=== PATIENT | female | born 1945 | race Two or more races ===

== ENCOUNTER 2022-03-02 20:46 | Inpatient (IN) | payer OTHER ==
[~2022-03-02] VITALS: Ht 162.6 cm; Wt 56.0 kg
[2022-03-02 22:10] LABS: Basophils # (auto) 0 10 ^3/uL (0-0.2); Basophils % (auto) 0.5 % (0.0-2.0); Eosinophils # (auto) 0 10 ^3/uL (0-0.8); Eosinophils % (auto) 0.3 % (0.0-7.0); Hematocrit 35.6 % (36.0-46.0); Hemoglobin 11.4 g/dL (12.2-16.2); Lymphocytes # (auto) 1.1 10 ^3/uL (0.4-5.4); Lymphocytes % (auto) 17.1 % (10.0-50.0); Mean Corpuscular Hemoglobin 28.9 pg (28.0-32.0); Mean Corpuscular Hgb Conc. 32.1 g/dL (32.0-36.0); Monocytes # (auto) 0.3 10 ^3/uL (0-1.3); Monocytes % (auto) 5.4 % (0.0-12.0); Neutrophils # (auto) 4.8 10 ^3/uL (1.6-8.6); Neutrophils % (auto) 76.7 % (37.0-80.0); Red Blood Cells 3.95 10^6/uL (4.0-5.20); Red Cell Distribution Width 14.8 % (11.8-14.3); White Blood Cell 6.2 10^3/uL (4.4-10.8)
[2022-03-02] MEDS ORDERED: SODIUM CHLORIDE 0.9% 1,000 ML IV ONE (22:15)
[2022-03-02 22:27] LABS: Albumin 3.1 g/dL (3.4-5.0); Calcium 8.4 mg/dL (8.5-10.1); Potassium 3.8 mmol/L (3.5-5.1)
[2022-03-02 22:30] LABS: BUN/Creatinine Ratio 11.3
[2022-03-02 22:32] LABS: Bilirubin, Total 0.9 mg/dL (0.2-1.0); Total Protein 6.3 g/dL (6.4-8.2)
[2022-03-03] MEDS ORDERED: ONDANSETRON HCL 4 MG/2 ML VIAL IV PRN (00:45)
[2022-03-03] MEDS ORDERED: MORPHINE SULFATE INJ 2 MG/ml SYRG IV PRN (00:45)
[2022-03-03] MEDS ORDERED: ACETAMINOPHEN 325 MG TAB PO PRN (00:45)
[2022-03-03] MEDS ORDERED: NITROGLYCERIN 0.4 MG SL TAB SL PRN (00:45)
[2022-03-03] MEDS ORDERED: ALBUMIN 5% 250 ML IV ONE (00:45)
[2022-03-03 08:03] LABS: BUN/Creatinine Ratio 10.5; Calcium 7.9 mg/dL (8.5-10.1); Potassium 3.7 mmol/L (3.5-5.1)
[2022-03-03 09:24] VITALS: BP 107/53
[2022-03-03] MEDS: PANTOPRAZOLE 40 MG TAB PO SCH ×2 (09:56→10:25)
[2022-03-03] MEDS: ENOXAPARIN SOD 40 MG/0.4 ML SYRINGE SC SCH ×2 (09:56→10:26)
[2022-03-03 12:35] VITALS: BP 113/65
[2022-03-03] MEDS: SODIUM CHLORIDE 0.9% 1,000 ML IV SCH (14:15)
[2022-03-03 16:35] VITALS: BP 110/66
[2022-03-03 17:20] LABS: Free T3 2.16 pg/mL (2.3-4.2); Free T4 (Free Thyroxine) 1.15 ng/dL (0.89-1.76)
[2022-03-03 17:21] LABS: Folate (Folic Acid) 9.36 ng/mL (5.38-24)
[2022-03-03] MEDS ORDERED: HALOPERIDOL LACTATE 5 MG/ML INJ VIAL IM PRN (21:45)
[2022-03-03 22:00] VITALS: BP 121/60
[2022-03-04 05:00] VITALS: BP 120/60
[2022-03-04 05:07] LABS: RPR Non Reactive (Non Reactive)
[2022-03-04 06:47] LABS: Basophils # (auto) 0 10 ^3/uL (0-0.2); Basophils % (auto) 0.6 % (0.0-2.0); Eosinophils # (auto) 0.1 10 ^3/uL (0-0.8); Eosinophils % (auto) 1.6 % (0.0-7.0); Hematocrit 35.9 % (36.0-46.0); Hemoglobin 11.8 g/dL (12.2-16.2); Lymphocytes # (auto) 2.1 10 ^3/uL (0.4-5.4); Lymphocytes % (auto) 34.8 % (10.0-50.0); Mean Corpuscular Hgb Conc. 32.9 g/dL (32.0-36.0); Mean Corpuscular Volume 88.1 fL (80.0-100.0); Monocytes # (auto) 0.4 10 ^3/uL (0-1.3); Monocytes % (auto) 5.8 % (0.0-12.0); Neutrophils # (auto) 3.5 10 ^3/uL (1.6-8.6); Neutrophils % (auto) 57.2 % (37.0-80.0); Nucleated Red Blood Cells % 0.1 %; Red Blood Cells 4.07 10^6/uL (4.0-5.20); Red Cell Distribution Width 14.4 % (11.8-14.3); White Blood Cell 6.2 10^3/uL (4.4-10.8)
[2022-03-04] MEDS: SODIUM CHLORIDE 0.9% 1,000 ML IV SCH ×2 (06:48→16:55)
[2022-03-04 07:07] LABS: Potassium 3.4 mmol/L (3.5-5.1)
[2022-03-04 07:17] LABS: BUN/Creatinine Ratio 10.5; Calcium 8.5 mg/dL (8.5-10.1)
[2022-03-04 09:00] VITALS: BP 113/69
[2022-03-04 13:00] VITALS: BP 101/59
[2022-03-04] MEDS: LEVOTHYROXINE SODIUM 25 MCG TAB PO SCH (16:18)
[2022-03-04 17:00] VITALS: BP 141/66
[2022-03-04 22:00] VITALS: BP 114/57
[2022-03-05 05:00] VITALS: BP 115/62
[2022-03-05] MEDS: SODIUM CHLORIDE 0.9% 1,000 ML IV SCH ×2 (06:15→19:35)
[2022-03-05 06:30] LABS: Basophils # (auto) 0.1 10 ^3/uL (0-0.2); Basophils % (auto) 0.9 % (0.0-2.0); Eosinophils # (auto) 0.1 10 ^3/uL (0-0.8); Eosinophils % (auto) 1.8 % (0.0-7.0); Hematocrit 36.2 % (36.0-46.0); Hemoglobin 12.2 g/dL (12.2-16.2); Lymphocytes % (auto) 34.6 % (10.0-50.0); Mean Corpuscular Hemoglobin 29.3 pg (28.0-32.0); Mean Corpuscular Hgb Conc. 33.7 g/dL (32.0-36.0); Mean Corpuscular Volume 86.7 fL (80.0-100.0); Monocytes # (auto) 0.4 10 ^3/uL (0-1.3); Monocytes % (auto) 7.6 % (0.0-12.0); Neutrophils # (auto) 3.2 10 ^3/uL (1.6-8.6); Neutrophils % (auto) 55.1 % (37.0-80.0); Nucleated Red Blood Cells % 0.2 %; Red Blood Cells 4.18 10^6/uL (4.0-5.20); Red Cell Distribution Width 14.5 % (11.8-14.3); White Blood Cell 5.8 10^3/uL (4.4-10.8)
[2022-03-05 06:44] LABS: BUN/Creatinine Ratio 8.2; Calcium 8.6 mg/dL (8.5-10.1); Potassium 3.2 mmol/L (3.5-5.1)
[2022-03-05] MEDS: LEVOTHYROXINE SODIUM 25 MCG TAB PO SCH (06:48)
[2022-03-05 08:55] VITALS: BP 102/72
[2022-03-05] MEDS: PANTOPRAZOLE 40 MG TAB PO SCH (10:14)
[2022-03-05] MEDS: ENOXAPARIN SOD 40 MG/0.4 ML SYRINGE SC SCH ×2 (10:14→10:15)
[2022-03-05 12:55] VITALS: BP 110/73
[2022-03-05] MEDS ORDERED: LEV25T PO (13:25)
[2022-03-05] MEDS ORDERED: POTASSIUM CHL 20MEQ/100ML 100 ML IV ONE (13:30)
[2022-03-05 16:42] VITALS: BP 124/69
[2022-03-05 21:27] VITALS: BP 126/84
[2022-03-06] MEDS: LEVOTHYROXINE SODIUM 25 MCG TAB PO SCH (06:33)
[2022-03-06 08:59] VITALS: BP 124/57
[2022-03-06] MEDS: PANTOPRAZOLE 40 MG TAB PO SCH (09:24)
== END 2022-03-06 11:19 | disposition still patient (30) | DRG 312 ==
LOC: EDBD 20:46 → ER 20:49 → TELE 03-03 00:37 → TELE-CENTR 03-03 08:08
PROVIDERS: ADMIT Nurse Practitioner; ATTEND Internal Medicine
DX: R55 Syncope and collapse (principal); G93.41 Metabolic encephalopathy; Z20.822 Contact with and (suspected) exposure to COVID-19; E78.5 Hyperlipidemia, unspecified; F03.90 Unspecified dementia, unspecified severity, without behavioral disturbance, psychotic disturbance, mood disturbance, and anxiety; E03.9 Hypothyroidism, unspecified; H57.02 Anisocoria; I10 Essential (primary) hypertension; I95.9 Hypotension, unspecified; E87.6 Hypokalemia; R00.1 Bradycardia, unspecified; R94.6 Abnormal results of thyroid function studies; Z88.5 Allergy status to narcotic agent; Z88.8 Allergy status to other drugs, medicaments and biological substances; Z90.49 Acquired absence of other specified parts of digestive tract
CPT/HCPCS: 36415; 70450; 70551; 71045; 71250; 80048; 80053; 82607; 82746; 84439; 84443; 84481; 84484; 85025; 86592; 93005; 93306; 95819; 96361; 96365; 97110; 97530; G0378; J3480

== ENCOUNTER 2024-06-26 06:27 | Emergency (ER) | payer OTHER, MEDICAID ==
[~2024-06-26] VITALS: Ht 157.5 cm; Wt 45.0 kg
[~2024-06-26 06:27] MED LIST: ASPI81TA28 PO; CALC-606 PO; DONE5TAB80 PO; LEV25T PO; METO25TA36 PO; OMEP1CAP70 PO; SIMV40TA18 PO; [UNRECOGNIZED DRUG - CODE] PO; [UNRECOGNIZED DRUG - CODE] PO
--- NOTE | 2024-06-26 06:52 | ED.PDOC ---
History of Present Illness HPI Comments 79-year-old female brought in by EMS presents s/p mechanical fall at home this morning. Per EMS, family states that they heard a thud and found patient on the ground. Patient is baseline A&Ox0 and GCS 13. Patient has a small left forehead laceration sustained from the fall. Per EMS, family reported positive LOC. Patient is not on blood thinners. No other symptoms or modifying factors present at this time. Chief Complaint: Fall Injury Time Seen by MD: 06:41 Reviewed Notes: Parts Inspector Notes, Medications, Allergies Allergies: Coded Allergies: Codeine (Verified Allergy, Unknown, 03/03/22) Promethazine (Verified Allergy, Unknown, 03/03/22) Home Meds Active Scripts Metoprolol Succinate (Toprol Xl) 25 Mg Tab, 1 TAB PO DAILY, #90 TAB 1 Refill Prov:HENNA DOMINGO MD 01/23/24 Aspirin (Aspirin Ec) 81 Mg Tab, 81 MG PO DAILY, #60 TAB Prov:HENNA DOMINGO MD 01/23/24 Levothyroxine Sodium (Levothyroxine Sodium) 25 Mcg Tab, 25 MCG PO QAM, #30 TAB Prov:ABIGAIL BEARDEN MD 03/05/22 Reported Medications Ferrous Sulfate (True Ferrous Sulfate) 324 Mg Tab, 1 TAB PO DAILY 01/23/24 Donepezil Hydrochloride (DONEPEZIL HCL) 5 Mg Tab, PO 01/23/24 Calcium Carbonate-Cholecalcife (Ultra Calcium + Vitamin D 600-10 mg-Mcg) 1 Tab Tab, 1 TAB PO BID 01/23/24 Folic Acid (True Folic Acid) 1 Mg Tab, 1 TAB PO DAILY 01/23/24 Simvastatin (Simvastatin) 40 Mg Tab, PO 01/23/24 Omeprazole (Omeprazole Dr) 20 Mg Cap, PO 01/23/24 Information Source: Emergency Med Personnel Mode of Arrival: EMS Severity: Moderate Timing: Minutes Duration: Since onset Prehospital treatment: None Past Medical History PAST MEDICAL HISTORY: Dementia, Hypotension Surgical History: Denies all surgeries DIRECTOR NURSES' REGISTRY History: Denies all DIRECTOR NURSES' REGISTRY Hx Family History Family History: Reviewed,noncontributory to illness Social History Smoker: Non-Smoker Alcohol: Denies ETOH Use Drugs: Denies Drug Use Lives In: Home Constitutional: denies: chills, diaphoresis, fatigue, fever, malaise, sweats, w eakness, others EENTM: denies: blurred vision, double vision, ear bleeding, ear discharge, ear drainage, ear pain, ear ringing, eye pain, eye redness, hearing loss, mouth pain, mouth swelling, nasal discharge, nose bleeding, nose congestion, nose pain, photophobia, tearing, throat pain, throat swelling, voice changes, others Respiratory: denies: cough, hemoptysis, orthopnea, SOB at rest, shortness of breath, SOB with excertion, stridor, wheezing, others Cardiovascular: denies: chest pain, dizzy spells, diaphoresis, Dyspnea on exertion, edema, irregular heart beat, left arm pain, lightheadedness, palpitations, PND, syncope, others Gastrointestinal: denies: abdomen distended, abdominal pain, blood streaked bowels, constipated, diarrhea, dysphagia, difficulty swallowing, hematemesis, melena, nausea, poor appetite, poor fluid intake, rectal bleeding, rectal pain, vomiting, others Genitourinary: denies: abnormal vagina bleeding, burning, dyspareunia, dysuria, flank pain, frequency, hematuria, incontinence, pain, , vagina di scharge, urgency, others Neurological: denies: dizziness, fainting, headache, left sided numbness, left sided weakness, numbness, paresthesia, pre-existing deficit, right sided numbness, right sided weakness, seizure, speech problems, tingling, tremors, weakness, others Musculoskeletal: denies: back pain, gout, joint pain, joint swelling, muscle pain, muscle stiffness, neck pain, others Integumetry: reports: laceration (Left Forehead); denies: bruises, change in color, change in hair/nails, dryness, lesions, lumps, rash, wounds, others Allergic/Immunocompromised: denies: Difficulty Healing, Frequent Infections, Hives, Itching, others Hematologic/Lymphatic: denies: anemia, blood clots, easy bleeding, easy bruising, swollen glands, others Endocrine: denies: excessive hunger, excessive sweating, excessive thirst, excessive urination, flushing, intolerance to cold, intolerance to heat, unexplained weight gain, unexplained weight loss, others Psychiatric: denies: anxiety, bipolar disorder, depression, hopeless, panic disorder, schizophrenia, sleepless, suicidal, others Unable to Obtain due to: Dementia All Other Systems: Reviewed and Negative Physical Exam General Appearance: No Apparent Distress, Normal HEENT: Normal ENT Inspection, Pharynx Normal, TMs Normal Neck: Full Range of Motion, Non-Tender, Normal, Normal Inspection Respiratory: Chest Non-Tender, Lungs Clear, No Accessory Muscle Use, No Respiratory Distress, Normal Breath Sounds Cardiovascular: No Edema, No JVD, No Murmur, No Gallop, Normal Peripheral Pulses, Regular Rate/Rhythm Breast Exam: Deferred Gastrointestinal: No Organomegaly, Non Tender, No Pulsatile Mass, Normal Bowel Sounds, Soft Genitalia: Deferred Pelvic: Deferred Rectal: Deferred Extremities: No calf tenderness, Normal capillary refill, Normal inspection, Normal range of motion, Non-tender, No pedal edema Musculoskeletal : Apperance: Normal Neurologic: Alert, syrup filterer II-XII nml as Tested, No Motor Deficits, Normal Affect, Normal Mood, No Sensory Deficits Cerebellar Function: Normal Reflexes: Normal Skin: Dry, Normal Color, Warm Lymphatic: No Adenopathy Was a procedure done? Was a procedure done?: No Differential Dx Considerations may include: Traumatic injury, electrolyte abnormality, intracranial bleed X-Ray, Labs, Meds, VS Vital Signs Date Time Temp Pulse Resp B/P (MAP) Pulse Ox O2 Delivery O2 Flow Rate FiO2 06/26/24 10:24 98.2 89 18 122/68 (86) 96 98.2 06/26/24 06:32 78 06/26/24 06:27 98.2 72 18 126/69 (88) 97 Lab Test 06/26/24 10:14 Range/Units White Blood Count 13.7 H 4.4-10.8 10^3/uL Red Blood Count 4.46 4.0-5.20 10^6/uL Hemoglobin 13.0 12.2-16.2 g/dL Hematocrit 38.5 36.0-46.0 % Mean Corpuscular Volume 86.3 80.0-100.0 fL Mean Corpuscular Hemoglobin 29.1 28.0-32.0 pg Mean Corpuscular Hemoglobin Concent 33.7 32.0-36.0 g/dL Red Cell Distribution Width 15.7 H 11.8-14.3 % Platelet Count 279 140-450 10^3/uL Mean Platelet Volume 9.0 6.9-10.8 fL Neutrophils (%) (Auto) 83.4 H 37.0-80.0 % Lymphocytes (%) (Auto) 10.9 10.0-50.0 % Monocytes (%) (Auto) 5.1 0.0-12.0 % Eosinophils (%) (Auto) 0.1 0.0-7.0 % Basophils (%) (Auto) 0.5 0.0-2.0 % Neutrophils # (Auto) 11.5 H 1.6-8.6 10 ^3/uL Lymphocytes # (Auto) 1.5 0.4-5.4 10 ^3/uL Monocytes # (Auto) 0.7 0-1.3 10 ^3/uL Eosinophils # (Auto) 0 0-0.8 10 ^3/uL Basophils # (Auto) 0.1 0-0.2 10 ^3/uL Nucleated Red Blood Cells 0.1 % Prothrombin Time Pending Prothrombin Time INR Pending Sodium Level Pending Potassium Level Pending Chloride Level Pending Carbon Dioxide Level Pending Anion Gap Pending Blood Urea Nitrogen Pending Creatinine Pending Glomerular Filtration Rate Calc Pending BUN/Creatinine Ratio Pending Serum Glucose Pending Calcium Level Pending Current Medications Medications (Trade) Dose Ordered Sig/Padma Route Start Time Stop Time Status Last Admin Diphtheria/ Tetanus/Acell Pertussis (Boostrix T-Dap) 0.5 ml ONCE ONCE IM 06/26/24 07:00 06/26/24 07:01 DC 06/26/24 07:00 Lidocaine HCl (Lidocaine HCl Jelly) 5 ml ONCE ONCE TOP 06/26/24 07:00 06/26/24 07:01 DC 06/26/24 07:00 Time of 1ST Reevaluation: 07:11 Reevaluation 1ST: Unchanged Patient Education/Counseling: Diagnosis, Treatment, Prognosis Family Education/Counseling: No Family Present Departure 1 Departure Time of Disposition: 11:05 (Patient with subdural and intraparenchymal hemorrhage. We will transfer patient emergently to [facility] for trauma evaluation) Impression: Primary Impression: Altered mental status Qualified Codes: R41.0 - Disorientation, unspecified Additional Impressions: Intracranial hemorrhage Traumatic subdural hematoma Qualified Codes: S06.5X1A - Traumatic subdural hemorrhage with loss of consciousness of 30 minutes or less, initial encounter Disposition: 02 SHORT TERM HOSPITAL Condition: Critical Critical Care Note Critical Care Time?: Yes Critical care comment: Traumatic subdural and intracranial hemorrhage Authorized and Performed by: Adelita Cain MD Total critical care time: Approximately 138 minutes Due to a high probability of clinically significant, life threatening deterioration, the patient required my highest level of preparedness to intervene emergently and I personally spent this critical care time directly and personally managing the patient. This critical care time included obtaining a history; examining the patient; pulse oximetry; ordering and review of studies; arranging urgent treatment with development of a management plan; evaluation of patient's response to treatment; frequent reassessment; and, discussions with other providers. This critical care time was performed to assess and manage the high probability of imminent, life-threatening deterioration that could result in multi-organ failure. It was exclusive of separately billable procedures and treating other patients and teaching time. Please see my other sections and the rest of the note for further information on patient assessment and treatment. Stability Stability form required: No Heart Score Heart Score: Heart Score Response (Comments) Value History N/A 0 EKG N/A 0 Age N/A 0 Risk Factors N/A 0 Troponin N/A 0 Total 0 I personally scribed for ADELITA CAIN MD ([email or web address]) on 06/26/24 at 06:52. Electronically submitted by Tenzin Salgado ([email or web address]). ADELITA CAIN MD Jun 26, 2024 06:52
--- NOTE | 2024-06-26 06:53 | ECG ---
[facility] Test Date: 2024-06-26 Test Time: 06:32:46 Pat Name: JESS WHEAT Department: ER Room: Gender: F Consultant Dietitian: JACQUE : 1945 Requested By: ADELITA CAIN Order Number: [id number] Reading MD: Taco Marie Measurements Intervals [place] Rate: 78 P: 0 NV: 216 QRS: 1 QRSD: 80 T: 51 QT: 417 QTc: 476 Interpretive Statements Sinus rhythm Borderline prolonged NV interval Electronically Signed On 06-27-2024 13:13:05 PDT by Taco Marie Please click the below link to view image of tracing.
[2024-06-26] MEDS: LIDOCAINE 2% TOPICAL JELLY 5 ML URJT TOP ONE (07:00)
[2024-06-26] MEDS: TETANUS-DIPTH-ACEL PERTUSSIS 0.5ML SYR Tdap IM ONE (07:00)
--- NOTE | 2024-06-26 07:57 | DVH ---
EXAM: CT CERVICAL WITHOUT CONTRAST INDICATION: fall with headstrike EXAM DATE: 06/26/2024 07:24 AM COMPARISON: None TECHNIQUE: Multiple axial CT images of the cervical spine were obtained using bone algorithm. Axial a nd coronal reformatting was done. Bone and soft tissue windows were reviewed. Radiation Dose Information: CT Dose: CTDI volume is 0.3 mGy. Dose-length product is 1635.57 mGy*cm FINDINGS: The cervical alignment is intact. No acute cervical spine fracture is identified. The vertebral body heights are intact. No suspicious osseous lesions are identified. Multilevel intervertebral disc space narrowing. No significant canal stenosis. No significant neural foraminal stenosis. Multilevel facet arthropathy. There is no prevertebral soft tissue swelling. Left apical scarring. IMPRESSION: 1. No evidence of acute cervical spine fracture or traumatic malalignment. 2. Multilevel degenerative changes. All CT scans at this medical facility are performed using dose modulation techniques as appropriate t o a performed exam including the following:Automated exposure control was utilized; adjustment of the MA and/or KV according to patient size; and use of iterative reconstruction technique.
--- NOTE | 2024-06-26 07:59 | DVH ---
CLINICAL INFORMATION: 79 years old, Female; fall injury with headstrike. TECHNIQUE: Axial imaging was obtained through the brain without contrast. Coronal and sagittal refor matted images were obtained, reviewed, and stored. Images were reviewed in brain and bone windows. A ll CT scans at this medical facility are performed using dose modulation techniques as appropriate to a performed exam including the following: Automated exposure control was utilized; adjustment of the MA and/or KV according to patient size; and use of iterative reconstruction technique. CTDIvol = 53.79, 21.33 mGy DLP = 1635.57 mGy-cm COMPARISON: HEAD WITHOUT CONTRAST on DOS: 03/03/22. MRI dated 01/19/2024. FINDINGS: Motion artifact limits evaluation. There is extra-axial density along the left temporoparie alexander convexity, measuring up to 5 mm in thickness which may be artifact, although can not exclude subd ural hemorrhage. There is also focal hyperdensity in the periphery of the left frontoparietal region ( series 2 image 44 correlating with series 601, image 76), also possibly artifact, although acute he morrhage not excluded. Atrophic changes with prominence of the ventricles and widening of the sulci. No calvarial fracture visualized given the limitations of the examination. Paranasal sinuses are clear. Right mastoid air cells are clear. Postsurgical changes in the left mastoid, unchanged. IMPRESSION: 1. Motion limited study. 2. Extra-axial density along the left temporoparietal convexity may be artifact, although can not exc lude subdural hemorrhage. There is also focal hyperdensity in the periphery of the left frontoparieta l region, also possibly artifact, although acute intraparenchymal hemorrhage not excluded. Correlate with clinical findings. Recommend short interval follow-up CT. 3. Additional findings as detailed above.
[2024-06-26 10:40] LABS: Basophils # (auto) 0.1 10 ^3/uL (0-0.2); Basophils % (auto) 0.5 % (0.0-2.0); Eosinophils # (auto) 0 10 ^3/uL (0-0.8); Eosinophils % (auto) 0.1 % (0.0-7.0); Hematocrit 38.5 % (36.0-46.0); Lymphocytes # (auto) 1.5 10 ^3/uL (0.4-5.4); Lymphocytes % (auto) 10.9 % (10.0-50.0); Mean Corpuscular Hemoglobin 29.1 pg (28.0-32.0); Mean Corpuscular Hgb Conc. 33.7 g/dL (32.0-36.0); Mean Corpuscular Volume 86.3 fL (80.0-100.0); Monocytes # (auto) 0.7 10 ^3/uL (0-1.3); Monocytes % (auto) 5.1 % (0.0-12.0); Neutrophils # (auto) 11.5 10 ^3/uL (1.6-8.6); Neutrophils % (auto) 83.4 % (37.0-80.0); Nucleated Red Blood Cells % 0.1 %; Platelet Count (auto) 279 10^3/uL (140-450); Red Blood Cells 4.46 10^6/uL (4.0-5.20); Red Cell Distribution Width 15.7 % (11.8-14.3); White Blood Cell 13.7 10^3/uL (4.4-10.8)
[2024-06-26 10:51] LABS: INR 1.05 (0.9-1.15); Prothrombin Time 11.1 sec (9.3-11.8)
[2024-06-26 10:52] LABS: Anion Gap 7 (5-15); Carbon Dioxide 27 mmol/L (20-31); Chloride 104 mmol/L (98-107); Potassium 3.1 mmol/L (3.5-5.1); Sodium 138 mmol/L (136-145)
[2024-06-26 10:53] LABS: Calcium 9.2 mg/dL (8.7-10.4)
[2024-06-26 10:58] LABS: Glucose 129 mg/dL (74-106)
[2024-06-26 10:59] LABS: BUN/Creatinine Ratio 9.6 (10.0-20.0); Blood Urea Nitrogen < 5 mg/dL (9-23)
[2024-06-26] MEDS: levETIRAcetam 1000 mg/100ml 100 ML IV ONE (11:00)
[2024-06-26 12:25] VITALS: BP 110/65; PULSE 85; RESP 18; TEMP 98.2; O2SAT 98
[2024-06-26 13:54] LABS: Urine Bacteria None Seen /hpf (None Seen)
[2024-06-26 14:35] LABS: Urine Blood 1+ /uL (Negative); Urine Clarity Turbid (Clear); Urine Color Yellow (Yellow); Urine Mucus FEW (None Seen); Urine Protein, UAD TRACE (Negative); Urine Specific Gravity 1.018 (1.001-1.035); Urine Urobilinogen Normal (Negative); Urine WBC 62 /hpf (0 - 5)
== END 2024-06-26 12:52 | disposition short-term general hospital (02) ==
LOC: EDBD 06:27 → ER 06:27
DX: S06.5XAA Traumatic subdural hemorrhage with loss of consciousness status unknown, initial encounter (principal); R41.82 Altered mental status, unspecified; F03.90 Unspecified dementia, unspecified severity, without behavioral disturbance, psychotic disturbance, mood disturbance, and anxiety; Z79.82 Long term (current) use of aspirin; Z79.890 Hormone replacement therapy; Z79.899 Other long term (current) drug therapy; Z88.5 Allergy status to narcotic agent; W18.39XA Other fall on same level, initial encounter; Y93.89 Activity, other specified; Y92.89 Other specified places as the place of occurrence of the external cause; Y99.8 Other external cause status
CPT/HCPCS: 36415; 70450; 72125; 80048; 81001; 85025; 85610; 90471; 90715; 93005; 96365; 99291; 99292; J1953

== ENCOUNTER 2025-01-17 06:21 | Inpatient (IN) | payer OTHER, MEDICAID ==
[~2025-01-17] VITALS: Ht 157.5 cm; Wt 45.0 kg
--- NOTE | 2025-01-17 06:45 | ECG ---
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
--- NOTE | 2025-01-17 06:50 | ED.PDOC ---
History of Present Illness HPI Comments 79 year old female presents to the ED via EMS with a chief complaint of generalized weakness onset 1 day. PMHx dementia - non-verbal, Hypotension. Per EMS, patient is from Hospice care, nurse noticed patient has been experiencing generalized weakness for the past day, noticed dark urine yesterday. Son was wi th patient this morning, noticed patient was rubbing her chest. No other symptoms or modifying factors present at this time. Chief Complaint: General Weakness Time Seen by MD: 06:43 Reviewed Notes: Medications, Allergies Allergies: Coded Allergies: Codeine (Verified Allergy, Unknown, 03/03/22) Promethazine (Verified Allergy, Unknown, 03/03/22) Home Meds Active Scripts Metoprolol Succinate (Toprol Xl) 25 Mg Tab, 1 TAB PO DAILY, #90 TAB 1 Refill Prov:HENNA DOMINGO MD 01/23/24 Aspirin (Aspirin Ec) 81 Mg Tab, 81 MG PO DAILY, #60 TAB Prov:HENNA DOMINGO MD 01/23/24 Levothyroxine Sodium (Levothyroxine Sodium) 25 Mcg Tab, 25 MCG PO QAM, #30 TAB Prov:ABIGAIL BEARDEN MD 03/05/22 Reported Medications Ferrous Sulfate (True Ferrous Sulfate) 324 Mg Tab, 1 TAB PO DAILY 01/23/24 Donepezil Hydrochloride (DONEPEZIL HCL) 5 Mg Tab, PO 01/23/24 Calcium Carbonate-Cholecalcife (Ultra Calcium + Vitamin D 600-10 mg-Mcg) 1 Tab Tab, 1 TAB PO BID 01/23/24 Folic Acid (True Folic Acid) 1 Mg Tab, 1 TAB PO DAILY 01/23/24 Simvastatin (Simvastatin) 40 Mg Tab, PO 01/23/24 Omeprazole (Omeprazole Dr) 20 Mg Cap, PO 01/23/24 Information Source: Emergency Med Personnel Mode of Arrival: EMS Severity: Moderate Timing: Days Duration: Since onset Prehospital treatment: None Past Medical History PAST MEDICAL HISTORY: Dementia, Hypotension Surgical History: Denies all surgeries DRESS FINISHER History: Denies all DRESS FINISHER Hx Family History Family History: Reviewed,noncontributory to illness Social History Smoker: Non-Smoker Alcohol: Denies ETOH Use Drugs: Denies Drug Use Lives In: Home Constitutional: reports: weakness Neurological: reports: weakness Unable to Obtain due to: Dementia Physical Exam General Appearance: No Apparent Distress, Normal HEENT: Normal ENT Inspection, Pharynx Normal, TMs Normal Neck: Full Range of Motion, Non-Tender, Normal, Normal Inspection Respiratory: Chest Non-Tender, Lungs Clear, No Accessory Muscle Use, No Respiratory Distress, Normal Breath Sounds Cardiovascular: No Edema, No JVD, No Murmur, No Gallop, Normal Peripheral Pulses, Regular Rate/Rhythm Breast Exam: Deferred Gastrointestinal: No Organomegaly, Non Tender, No Pulsatile Mass, Normal Bowel Sounds, Soft Genitalia: Deferred Pelvic: Deferred Rectal: Deferred Extremities: No calf tenderness, Normal capillary refill, Normal inspection, Normal range of motion, Non-tender, No pedal edema Musculoskeletal : Apperance: Normal Neurologic: Alert, office administrator II-XII nml as Tested, No Motor Deficits, Normal Affect, Normal Mood, No Sensory Deficits Cerebellar Function: Normal Reflexes: Normal Skin: Dry, Normal Color, Warm Lymphatic: No Adenopathy Was a procedure done? Was a procedure done?: No EKG EKG : Pulse Rate (adult): 98 Cardiac Rhythm: NSR Differential Dx Considerations may include: CVA, ACS, electrolyte abnormalities, infectious etiology, worsening dementia X-Ray, Labs, Meds, VS Vital Signs Date Time Temp Pulse Resp B/P (MAP) Pulse Ox O2 Delivery O2 Flow Rate FiO2 01/17/25 07:50 98 01/17/25 07:45 91 01/17/25 07:08 89 20 94 Room Air* 0 21 01/17/25 07:06 97.6 89 20 162/63 (96) 95 97.6 01/17/25 06:39 98 01/17/25 06:38 98.9 90 16 140/75 (96) 97 98.9 Lab Test 01/17/25 08:04 01/17/25 07:05 Range/Units Troponin I High Sensitivity 3 L 4 </=34 ng/L White Blood Count 11.7 H 4.4-10.8 10^3/uL Red Blood Count 4.45 4.0-5.20 10^6/uL Hemoglobin 11.8 L 12.2-16.2 g/dL Hematocrit 35.4 L 36.0-46.0 % Mean Corpuscular Volume 79.6 L 80.0-100.0 fL Mean Corpuscular Hemoglobin 26.6 L 28.0-32.0 pg Mean Corpuscular Hemoglobin Concent 33.4 32.0-36.0 g/dL Red Cell Distribution Width 19.4 H 11.8-14.3 % Platelet Count 325 140-450 10^3/uL Mean Platelet Volume 7.7 6.9-10.8 fL Neutrophils (%) (Auto) 78.0 37.0-80.0 % Lymphocytes (%) (Auto) 16.1 10.0-50.0 % Monocytes (%) (Auto) 5.1 0.0-12.0 % Eosinophils (%) (Auto) 0.4 0.0-7.0 % Basophils (%) (Auto) 0.4 0.0-2.0 % Neutrophils # (Auto) 9.1 H 1.6-8.6 10 ^3/uL Lymphocytes # (Auto) 1.9 0.4-5.4 10 ^3/uL Monocytes # (Auto) 0.6 0-1.3 10 ^3/uL Eosinophils # (Auto) 0 0-0.8 10 ^3/uL Basophils # (Auto) 0.1 0-0.2 10 ^3/uL Nucleated Red Blood Cells 0.0 % Sodium Level 145 136-145 mmol/L Potassium Level 3.6 3.5-5.1 mmol/L Chloride Level 108 H 98-107 mmol/L Carbon Dioxide Level 26 20-31 mmol/L Anion Gap 11 5-15 Blood Urea Nitrogen 11 9-23 mg/dL Creatinine 0.51 L 0.550-1.02 mg/dL Glomerular Filtration Rate Calc 94 >90 mL/min BUN/Creatinine Ratio 21.6 H 10.0-20.0 Serum Glucose 154 H 74-106 mg/dL Calcium Level 9.1 8.7-10.4 mg/dL [facility] [id number] [place] [address] Ph: [phone] DIAGNOSTIC IMAGING Diagnostic Imaging Report : [id number] Signed PATIENT: JESS WHEAT ACCT: [id number] UNIT: [id number] : 1945 LOC: ER ROOM / BED: / AGE / SEX: 79 / F ADM STATUS: REG ER SERVICE 0647 ORDERING PHYSICIAN: ADELITA CAIN MD PROCEDURE(s): CXRP - CHEST PORTABLE REASON: weakness ORDER NUMBER(s): [id number], ACCESSION NUMBER(s): [id number] CHEST RADIOGRAPH Indication: weakness Technique: Single frontal view of the chest was obtained COMPARISON: XY CHEST XRAY 1 VIEW on DOS: 01/19/24, CHEST PORTABLE on DOS: 03/02/22, CXRP on DOS: 03/02/22 FINDINGS: Lines and Tubes: None Lungs: Increased interstitial prominence Pleura: No effusion. No pneumothorax. Cardiomediastinal contours: Cardiomegaly Bones: Unremarkable IMPRESSION: Mild pulmonary vascular congestion or viral pneumonia. ATED BY: ALDO FAUSTIN MD DICTATED DATE/TIME: 01/17/25733 SIGNED BY: ALDO FAUSTIN MD SIGNED DATE/TIME: 01/17/25733 CC: Time of 1ST Reevaluation: 07:13 Reevaluation 1ST: Unchanged Patient Education/Counseling: Diagnosis, Treatment Family Education/Counseling: No Family Present Additional Information The following tests were ordered, and results were reviewed by me: EKG, BMP, CBC, TROP-x3, BNP, XY CHEST Additional Information was gathered from interviewing the following independent historians: EMS I reviewed and agreed with the following test results read by other providers: XY CHEST I discussed treatment and results with medical personnel and: patient Comprehensive systems review obtained and negative except for what is stated in the HPI. Departure 1 Departure Time of Disposition: 09:07 (Patient with a worsening weakness and generalized weakness. We will admit patient for further workup) Impression: Primary Impression: Acute metabolic encephalopathy Additional Impression: Generalized weakness Disposition: 09 ADMITTED INPATIENT Admit to: Med Surg Condition: Serious Critical Care Note Critical Care Time?: Yes Critical care comment: Altered mental status Authorized and Performed by: Adelita Cain MD Total critical care time: Approximately 36 minutes Due to a high probability of clinically significant, life threatening deterioration, the patient required my highest level of preparedness to intervene emergently and I personally spent this critical care time directly and personally managing the patient. This critical care time included obtaining a history; examining the patient; pulse oximetry; ordering and review of studies; arranging urgent treatment with development of a management plan; evaluation of patient's response to treatment; frequent reassessment; and, discussions with other providers. This critical care time was performed to assess and manage the high probability of imminent, life-threatening deterioration that could result in multi-organ failure. It was exclusive of separately billable procedures and treating other patients and teaching time. Please see my other sections and the rest of the note for further information on patient assessment and treatment. Stability Stability form required: No I personally scribed for ADELITA CAIN MD ([email or web address]) on 01/17/25 at 06:50. Electronically submitted by Kelly Bowers ([email or web address]). I personally scribed for ADELITA CAIN MD ([email or web address]) on 01/17/25 at 07:00. Electronically submitted by Kelly Bowers ([email or web address]). I personally scribed for ADELITA CAIN MD ([email or web address]) on 01/17/25 at 07:50. Electronically submitted by Kelly Bowers ([email or web address]). ADELITA CAIN MD January 17, 2025 06:50
[2025-01-17 07:08] VITALS: PULSE 89; RESP 20; O2SAT 94
[2025-01-17 07:19] LABS: Basophils # (auto) 0.1 10 ^3/uL (0-0.2); Basophils % (auto) 0.4 % (0.0-2.0); Eosinophils # (auto) 0 10 ^3/uL (0-0.8); Eosinophils % (auto) 0.4 % (0.0-7.0); Hematocrit 35.4 % (36.0-46.0); Hemoglobin 11.8 g/dL (12.2-16.2); Lymphocytes # (auto) 1.9 10 ^3/uL (0.4-5.4); Lymphocytes % (auto) 16.1 % (10.0-50.0); Mean Corpuscular Hemoglobin 26.6 pg (28.0-32.0); Mean Corpuscular Hgb Conc. 33.4 g/dL (32.0-36.0); Mean Corpuscular Volume 79.6 fL (80.0-100.0); Monocytes # (auto) 0.6 10 ^3/uL (0-1.3); Monocytes % (auto) 5.1 % (0.0-12.0); Neutrophils # (auto) 9.1 10 ^3/uL (1.6-8.6); Platelet Count (auto) 325 10^3/uL (140-450); Red Blood Cells 4.45 10^6/uL (4.0-5.20); Red Cell Distribution Width 19.4 % (11.8-14.3); White Blood Cell 11.7 10^3/uL (4.4-10.8)
[2025-01-17 07:30] LABS: Potassium 3.6 mmol/L (3.5-5.1)
[2025-01-17 07:31] LABS: Anion Gap 11 (5-15); Calcium 9.1 mg/dL (8.7-10.4); Carbon Dioxide 26 mmol/L (20-31)
[2025-01-17 07:36] LABS: BUN/Creatinine Ratio 21.6 (10.0-20.0); Blood Urea Nitrogen 11 mg/dL (9-23)
--- NOTE | 2025-01-17 07:37 | DVH ---
CHEST RADIOGRAPH Indication: weakness Technique: Single frontal view of the chest was obtained COMPARISON: XY CHEST XRAY 1 VIEW on DOS: 01/19/24, CHEST PORTABLE on DOS: 03/02/22, CXRP on DOS: 2 FINDINGS: Lines and Tubes: None Lungs: Increased interstitial prominence Pleura: No effusion. No pneumothorax. Cardiomediastinal contours: Cardiomegaly Bones: Unremarkable IMPRESSION: Mild pulmonary vascular congestion or viral pneumonia.
[2025-01-17 07:38] LABS: Chloride 108 mmol/L (98-107); Glucose 154 mg/dL (74-106); Sodium 145 mmol/L (136-145)
[2025-01-17] MEDS ORDERED: ONDANSETRON HCL 4 MG/2 ML VIAL IV PRN (10:15)
[2025-01-17] MEDS ORDERED: ACETAMINOPHEN 325 MG TAB PO PRN (10:15)
[2025-01-17] MEDS ORDERED: NITROGLYCERIN 0.4 MG SL TAB SL PRN (10:15)
[2025-01-17] MEDS: cefTRIAXone 1GM/50ML D5W 50 ML IV SCH (11:19)
--- NOTE | 2025-01-17 12:12 | DVHHP2 ---
History of Present Illness Reason for Visit: Generalized weakness History of Present Illness Eliana Appiah is an 79-year-old female with past medical history of hypertension, dementia, hypotension, and AFib who presents to the ED with generalized weakness x1 day. Patient is currently A&O x2 to person and date of . Called next of kin Stevenson (son). He states that he brought her in because she has been progressively getting weak. Patient's son stated that when his mom was at [facility] she was discharged with Eliquis however patient's son states that he stopped her Eliquis 2 months ago due to the side effects that it would possibly cause. He also reports that the patient's home hospice nurse advised him of the side effects. He also reports the patient is on aspirin. Patient's son states that she was ambulating over a year ago but has been bed-bound since then. He also states that she can stand up but with assistance and unsteady. He also reports that she lives with him. Per son no complaints of shortness of breath, fever, chills, recent trauma or injury, recent sick contacts, recent travels, recent ingestion of spoiled food, abdominal pain, nausea, vomiting, or diarrhea. Cardiovascular: AFIB, HTN HSPT TUTOR: Dementia Past Surgical History: Other (Ear surgery per son unknown if it is left or right and left leg surgery has a pin) Family History: None Smoke: No ALCOHOL: none Drugs: None Lives: with Family Domestic Violence: Neg Review of Systems Constitutional: Yes: Weakness Allergies: Coded Allergies: Codeine (Verified Allergy, Unknown, 03/03/22) Promethazine (Verified Allergy, Unknown, 03/03/22) Medications Current Medications Medications Dose Ordered Sig/Padma Route Start Time Stop Time Status Last Admin Dose Admin Ceftriaxone Sodium 50 ml @ 100 mls/hr DAILY@09 IV 01/17/25 10:15 UNV Ondansetron HCl 4 mg Q4HP PRN IV 01/17/25 10:15 UNV Enoxaparin Sodium 40 mg DAILY SC 01/18/25 10:00 UNV Exam Vital Signs Vital Signs Date Time Temp Pulse Resp B/P (MAP) Pulse Ox O2 Delivery O2 Flow Rate FiO2 01/17/25 07:50 98 01/17/25 07:08 20 94 Room Air* 0 21 01/17/25 07:06 97.6 162/63 (96) 97.6 General Appearance: Alert, Cooperative, No acute distress HEENT: Atraumatic, PERRLA, EOMI, Mucous membr. moist/pink Respiratory: Clear to auscultation, Normal air movement Cardiovascular: Regular rate, Normal S1, Normal S2 Abdominal: Normal bowel sounds, Soft Extremities: No clubbing, No cyanosis, Normal pulses Skin: No significant lesion Neuro: Normal tone, Sensation intact Psych/Mental Status: Mental status NL Labs/Xrays Labs Test 01/17/25 10:15 01/17/25 07:05 Range/Units White Blood Count 11.7 H 4.4-10.8 10^3/uL Red Blood Count 4.45 4.0-5.20 10^6/uL Hemoglobin 11.8 L 12.2-16.2 g/dL Hematocrit 35.4 L 36.0-46.0 % Mean Corpuscular Volume 79.6 L 80.0-100.0 fL Mean Corpuscular Hemoglobin 26.6 L 28.0-32.0 pg Mean Corpuscular Hemoglobin Concent 33.4 32.0-36.0 g/dL Red Cell Distribution Width 19.4 H 11.8-14.3 % Platelet Count 325 140-450 10^3/uL Mean Platelet Volume 7.7 6.9-10.8 fL Neutrophils (%) (Auto) 78.0 37.0-80.0 % Lymphocytes (%) (Auto) 16.1 10.0-50.0 % Monocytes (%) (Auto) 5.1 0.0-12.0 % Eosinophils (%) (Auto) 0.4 0.0-7.0 % Basophils (%) (Auto) 0.4 0.0-2.0 % Neutrophils # (Auto) 9.1 H 1.6-8.6 10 ^3/uL Lymphocytes # (Auto) 1.9 0.4-5.4 10 ^3/uL Monocytes # (Auto) 0.6 0-1.3 10 ^3/uL Eosinophils # (Auto) 0 0-0.8 10 ^3/uL Basophils # (Auto) 0.1 0-0.2 10 ^3/uL Nucleated Red Blood Cells 0.0 % Sodium Level 145 136-145 mmol/L Potassium Level 3.6 3.5-5.1 mmol/L Chloride Level 108 H 98-107 mmol/L Carbon Dioxide Level 26 20-31 mmol/L Anion Gap 11 5-15 Blood Urea Nitrogen 11 9-23 mg/dL Creatinine 0.51 L 0.550-1.02 mg/dL Glomerular Filtration Rate Calc 94 >90 mL/min BUN/Creatinine Ratio 21.6 H 10.0-20.0 Serum Glucose 154 H 74-106 mg/dL Calcium Level 9.1 8.7-10.4 mg/dL CHEST RADIOGRAPH Indication: weakness Technique: Single frontal view of the chest was obtained COMPARISON: XY CHEST XRAY 1 VIEW on DOS: 01/19/24, CHEST PORTABLE on DOS: 03/02/22, CXRP on DOS: 03/02/22 FINDINGS: Lines and Tubes: None Lungs: Increased interstitial prominence Pleura: No effusion. No pneumothorax. Cardiomediastinal contours: Cardiomegaly Bones: Unremarkable IMPRESSION: Mild pulmonary vascular congestion or viral pneumonia. Assessment/Plan Assessment/Plan Assessment Generalized weakness Leukocytosis likely due to pneumonia Hyperglycemia History of hypertension History of dementia History of AFib not on Eliquis Chronic bed-bound Plan Admit to [facility] Antiemetics Pain management IV antibiotics-ceftriaxone Hemoglobin A1c UA EKG noted Troponin negative x2 Chest x-ray noted CK Home medications reconciled DVT prophylaxis-Lovenox PUD prophylaxis-PPIs Discussed plan of care with patient and nurse Plan discussed with: Patient, Son, Other My Orders Orders - BRIAN REYES Procedure Category Date Status Time Creatine Kinase LAB 01/17/25 Transmitted 10:12 Urinalysis LAB 01/17/25 Transmitted 10:12 Straight Cath. ED NURSING 01/17/25 Transmitted Hemoglobin A1c LAB 01/17/25 Transmitted 10:12 Ceftriaxone Ivpb PHA 01/17/25 Transmitted Rocephin 10:15 Admit ADMIT 01/17/25 Transmitted 10:12 Allergies [facility] 01/17/25 Transmitted 10:12 Code Status CODE 01/17/25 Transmitted 10:12 Ondansetron Hcl PHA 01/17/25 Transmitted (Zofran) 10:15 Enoxaparin Sodium PHA 01/18/25 Transmitted (Lovenox) 10:00 Complete Blood Count LAB 01/18/25 Verified 04:00 Comprehensive LAB 01/18/25 Verified Metabolic Panel 04:00 Cardiac DIET 01/17/25 Transmitted Diet-2gna,Lofat,Lochol Lunch Acetaminophen Tablet PHA 01/17/25 Transmitted (Tylenol Tablet) 10:15 Nitroglycerin PHA 01/17/25 Transmitted Sublingual (Ntrostat 10:15 Stat Ekg For Chest [facility] 01/17/25 Transmitted Pain 10:12 Notify Of Changes [facility] 01/17/25 Transmitted From Base 10:12 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 [facility] 01/17/25 Transmitted 24 Hours 10:12 Emergency Dysrhythmia [facility] 01/17/25 Transmitted Protocol 10:12 Rhythm Strips Once [facility] 01/17/25 Transmitted Every Shift 10:12 Oxygen By Nasal RT 01/17/25 Transmitted Cannula 10:12 Aspirin Enteric PHA 01/18/25 Transmitted Coated Tablet 10:00 Calcium W/Vit D PHA 01/17/25 Transmitted Tablet (Oscal W/Vit D 22:00 Donepezil Tablet PHA 01/18/25 Transmitted (Aricept Tablet) 10:00 Levothyroxine Tablet PHA 01/18/25 Transmitted (Synthroid Tablet) 07:00 (Nf) Ferrous Sulfate PHA 01/18/25 Transmitted (True Ferrous Sulfa 10:00 (Nf) Folic Acid (True PHA 01/18/25 Transmitted Folic Acid) 10:00 (Nf) Metoprolol PHA 01/18/25 Transmitted Succinate (Toprol Xl) 10:00 Pantoprazole PHA 01/18/25 Transmitted (Protonix) 10:00 Date of Service: January 17, 2025 Billing Provider: BRIAN REYES Common Visit Codes: [id number] INP/OBS CARE (HIGH) BRIAN REYES January 17, 2025 12:12
[2025-01-17 17:40] VITALS: PULSE 80; RESP 18
[2025-01-17 21:04] VITALS: BP 77/48; PULSE 83; RESP 18; TEMP 99.6; O2SAT 95
[2025-01-17] MEDS: ATORVASTATIN 20 MG TAB PO SCH (22:00)
[2025-01-17] MEDS: CALCIUM W/VIT D (600MG/400IU) TAB PO SCH (22:08)
[2025-01-18] VITALS (7 sets, daily range): BP systolic 110–127; BP diastolic 52–80; PULSE 60–86; RESP 17–20; TEMP 97.9–99.1; O2SAT 90–98
[2025-01-18 06:15] LABS: Basophils # (auto) 0.1 10 ^3/uL (0-0.2); Eosinophils # (auto) 0.1 10 ^3/uL (0-0.8); Eosinophils % (auto) 1.4 % (0.0-7.0); Hematocrit 36.3 % (36.0-46.0); Hemoglobin 11.7 g/dL (12.2-16.2); Lymphocytes # (auto) 2.8 10 ^3/uL (0.4-5.4); Lymphocytes % (auto) 31.6 % (10.0-50.0); Mean Corpuscular Hemoglobin 26.3 pg (28.0-32.0); Mean Corpuscular Hgb Conc. 32.4 g/dL (32.0-36.0); Mean Corpuscular Volume 81.2 fL (80.0-100.0); Monocytes # (auto) 0.5 10 ^3/uL (0-1.3); Monocytes % (auto) 5.9 % (0.0-12.0); Neutrophils # (auto) 5.3 10 ^3/uL (1.6-8.6); Neutrophils % (auto) 60.1 % (37.0-80.0); Nucleated Red Blood Cells % 0.2 %; Platelet Count (auto) 298 10^3/uL (140-450); Red Blood Cells 4.46 10^6/uL (4.0-5.20); Red Cell Distribution Width 20.3 % (11.8-14.3); White Blood Cell 8.8 10^3/uL (4.4-10.8)
[2025-01-18 06:46] LABS: Albumin 3.9 g/dL (3.2-4.8); Alkaline Phosphatase 90 U/L (46-116); Anion Gap 9 (5-15); BUN/Creatinine Ratio 10.5 (10.0-20.0); Calcium 9.9 mg/dL (8.7-10.4); Carbon Dioxide 26 mmol/L (20-31); Chloride 105 mmol/L (98-107); Glucose 103 mg/dL (74-106); Potassium 4.1 mmol/L (3.5-5.1); Sodium 140 mmol/L (136-145); Total Protein 6.9 g/dL (5.7-8.2)
[2025-01-18] MEDS: LEVOTHYROXINE SODIUM 25 MCG TAB PO SCH (06:51)
[2025-01-18 07:05] LABS: Alanine Aminotransferase < 9 U/L (7-40); Aspartate Aminotransferase 12 U/L (13-40); Blood Urea Nitrogen 6 mg/dL (9-23)
[2025-01-18] MEDS: PANTOPRAZOLE 40 MG/10 ML VIAL INJ IV SCH (08:53)
[2025-01-18] MEDS: ENOXAPARIN SOD 40 MG/0.4 ML SYRINGE SC SCH (08:53)
[2025-01-18] MEDS: FOLIC ACID 1 MG TAB PO SCH (08:54)
[2025-01-18] MEDS: FERROUS SULFATE 325mg EC TAB PO SCH (08:54)
[2025-01-18] MEDS: METOPROLOL SUCCINATE XL 50 MG TAB PO SCH (10:00)
[2025-01-18] MEDS: DONEPEZIL HYDROCHLORIDE 5 MG TAB PO SCH (10:00)
[2025-01-18] MEDS: ASPirin-EC 81 mg tab PO SCH (10:00)
--- NOTE | 2025-01-18 13:16 | DVHPN2 ---
Reviewed: Care Plan, H&P, Labs, Medications, Previous Orders, Radiology Changes from previous H/P or p: No Changes Objective Vitals Vital Signs Date Time Temp Pulse Resp B/P (MAP) Pulse Ox O2 Delivery O2 Flow Rate FiO2 01/18/25 11:57 98.1 79 20 114/60 (78) 96 98.1 01/18/25 08:00 Room Air* 0 21 Intake/Output Intake and Output 01/18/25 07:00 Intake Total 137 ml Balance 137 ml Intake Oral 137 ml # Voids 4 Medications Current Medications Medications Dose Ordered Sig/Padma Route Start Time Stop Time Status Last Admin Dose Admin Ceftriaxone Sodium 50 ml @ 100 mls/hr DAILY@09 IV 01/17/25 10:15 01/18/25 08:53 100 MLS/HR Ondansetron HCl 4 mg Q4HP PRN IV 01/17/25 10:15 Enoxaparin Sodium 40 mg DAILY SC 01/18/25 10:00 01/18/25 08:53 40 MG Acetaminophen 650 mg Q6HP PRN PO 01/17/25 10:15 Nitroglycerin 0.4 mg Q5MINP PRN SL 01/17/25 10:15 Aspirin 81 mg DAILY PO 01/18/25 10:00 Calcium/Vitamin D 1 tab BID PO 01/17/25 22:00 01/17/25 22:08 1 TAB Donepezil HCl 5 mg DAILY PO 01/18/25 10:00 Levothyroxine Sodium 25 mcg QAM PO 01/18/25 07:00 Ferrous Sulfate 325 mg DAILY PO 01/18/25 10:00 01/18/25 10:55 325 MG Folic Acid 1 mg DAILY PO 01/18/25 10:00 01/18/25 10:55 1 MG Metoprolol Succinate 25 mg DAILY PO 01/18/25 10:00 Pantoprazole Sodium 40 mg DAILY IV 01/18/25 10:00 01/18/25 10:55 40 MG Atorvastatin Calcium 40 mg HS PO 01/17/25 22:00 Laboratory Results Laboratory Tests 01/18/25 05:46 Chemistry Test 01/18/25 05:46 Albumin 3.9 g/dL (3.2-4.8) Calcium Level 9.9 mg/dL (8.7-10.4) Total Protein 6.9 g/dL (5.7-8.2) LFT Test 01/18/25 05:46 Alanine Aminotransferase (ALT) < 9 U/L (7-40) Alkaline Phosphatase 90 U/L (46-116) Aspartate Amino Transferase (AST) 12 U/L (13-40) L Total Bilirubin 1.0 mg/dL (0.2-1.0) Labs and/or images reviewed: Labs reviewed by me, Image(s) reviewed by me Assessment/Plan Assessment/Plan Sepsis unknown etiology: Blood cultures urine cultures Rocephin AFib not on Eliquis Hypertension: Metoprolol Dementia: Aricept Hypercholesterolemia : Lipitor Hypothyroidism: Synthroid Time spent 55 minutes Plan discussed with: Patient My Orders Orders - MANJU GOINS MD Procedure Category Date Status Time Blood Culture CRYSTAL 01/18/25 Transmitted 13:09 Urine Bacterial CRYSTAL 01/18/25 Transmitted Culture 13:09 Communication Order ORDERS 01/18/25 Transmitted 13:09 Date of Service: January 18, 2025 Billing Provider: MANJU GOINS MD Common Visit Codes: [id number] INP/OBS CARE(HIGH) MANJU GOINS MD January 18, 2025 13:16
--- NOTE | 2025-01-18 13:32 | MEDREC ---
[facility] ASP Intervention Section I [facility] ASP Intervention: Review courses of therapy (PLEASE CONSIDER ADDING DOXYCYCLINE 100 MG IV Q12H FOR POSSIBLE PNA) BHUPINDER LEWIS January 18, 2025 13:32
[2025-01-19] VITALS (7 sets, daily range): BP systolic 117–137; BP diastolic 62–80; PULSE 80–93; RESP 17–20; TEMP 98.1–98.8; O2SAT 95–99
--- NOTE | 2025-01-19 09:57 | DVHPN2 ---
Reviewed: Care Plan, H&P, Labs, Medications, Previous Orders, Radiology Changes from previous H/P or p: No Changes Objective Vitals Vital Signs Date Time Temp Pulse Resp B/P (MAP) Pulse Ox O2 Delivery O2 Flow Rate FiO2 01/19/25 09:00 98.5 82 18 130/62 (84) 96 98.5 01/19/25 08:00 Room Air* 0 21 Intake/Output Intake and Output 01/19/25 07:00 Intake Total 690 ml Balance 690 ml Intake Oral 640 ml IV Total 50 ml # Voids 7 Medications Current Medications Medications Dose Ordered Sig/Padma Route Start Time Stop Time Status Last Admin Dose Admin Ceftriaxone Sodium 50 ml @ 100 mls/hr DAILY@09 IV 01/17/25 10:15 01/18/25 08:53 100 MLS/HR Ondansetron HCl 4 mg Q4HP PRN IV 01/17/25 10:15 Enoxaparin Sodium 40 mg DAILY SC 01/18/25 10:00 01/19/25 09:16 40 MG Acetaminophen 650 mg Q6HP PRN PO 01/17/25 10:15 Nitroglycerin 0.4 mg Q5MINP PRN SL 01/17/25 10:15 Aspirin 81 mg DAILY PO 01/18/25 10:00 01/19/25 09:14 81 MG Calcium/Vitamin D 1 tab BID PO 01/17/25 22:00 01/17/25 22:08 1 TAB Donepezil HCl 5 mg DAILY PO 01/18/25 10:00 Levothyroxine Sodium 25 mcg QAM PO 01/18/25 07:00 Ferrous Sulfate 325 mg DAILY PO 01/18/25 10:00 01/19/25 09:16 325 MG Folic Acid 1 mg DAILY PO 01/18/25 10:00 01/19/25 09:16 1 MG Metoprolol Succinate 25 mg DAILY PO 01/18/25 10:00 Pantoprazole Sodium 40 mg DAILY IV 01/18/25 10:00 01/19/25 09:16 40 MG Atorvastatin Calcium 40 mg HS PO 01/17/25 22:00 Laboratory Results Laboratory Tests 01/18/25 05:46 Labs and/or images reviewed: Labs reviewed by me, Image(s) reviewed by me Assessment/Plan Assessment/Plan Sepsis unknown etiology: Blood cultures urine cultures Rocephin AFib not on Eliquis Hypertension: Metoprolol Dementia: Aricept Hypercholesterolemia : Lipitor Hypothyroidism: Synthroid Time spent 55 minutes Plan discussed with: Patient My Orders Orders - MANJU GOINS MD Procedure Category Date Status Time Blood Culture CRYSTAL 01/18/25 In Process 13:09 Urine Bacterial CRYSTAL 01/18/25 Logged Culture 13:09 Communication Order ORDERS 01/18/25 Transmitted 13:09 Date of Service: January 19, 2025 Billing Provider: MANJU GOINS MD Common Visit Codes: [id number] INP/OBS CARE(HIGH) MANJU GOINS MD January 19, 2025 09:57
[2025-01-20] VITALS (7 sets, daily range): BP systolic 101–129; BP diastolic 54–76; PULSE 65–82; RESP 16–19; TEMP 97.7–98.5; O2SAT 93–97
--- NOTE | 2025-01-20 10:39 | DVHPN2 ---
Reviewed: Care Plan, H&P, Labs, Medications, Previous Orders, Radiology Changes from previous H/P or p: No Changes Objective Vitals Vital Signs Date Time Temp Pulse Resp B/P (MAP) Pulse Ox O2 Delivery O2 Flow Rate FiO2 01/20/25 09:34 78 128/54 01/20/25 05:00 98.5 17 95 98.5 01/19/25 20:00 Room Air* 0 21 Intake/Output Intake and Output 01/20/25 07:00 Intake Total 740 ml Balance 740 ml Intake Oral 740 ml # Voids 5 Medications Current Medications Medications Dose Ordered Sig/Padma Route Start Time Stop Time Status Last Admin Dose Admin Ceftriaxone Sodium 50 ml @ 100 mls/hr DAILY@09 IV 01/17/25 10:15 01/18/25 08:53 100 MLS/HR Ondansetron HCl 4 mg Q4HP PRN IV 01/17/25 10:15 Enoxaparin Sodium 40 mg DAILY SC 01/18/25 10:00 01/20/25 09:34 40 MG Acetaminophen 650 mg Q6HP PRN PO 01/17/25 10:15 Nitroglycerin 0.4 mg Q5MINP PRN SL 01/17/25 10:15 Aspirin 81 mg DAILY PO 01/18/25 10:00 01/20/25 09:34 81 MG Calcium/Vitamin D 1 tab BID PO 01/17/25 22:00 01/20/25 09:35 1 TAB Donepezil HCl 5 mg DAILY PO 01/18/25 10:00 01/20/25 09:34 5 MG Levothyroxine Sodium 25 mcg QAM PO 01/18/25 07:00 01/20/25 06:00 25 MCG Ferrous Sulfate 325 mg DAILY PO 01/18/25 10:00 01/20/25 09:35 325 MG Folic Acid 1 mg DAILY PO 01/18/25 10:00 01/20/25 09:35 1 MG Metoprolol Succinate 25 mg DAILY PO 01/18/25 10:00 01/20/25 09:34 25 MG Pantoprazole Sodium 40 mg DAILY IV 01/18/25 10:00 01/20/25 09:34 40 MG Atorvastatin Calcium 40 mg HS PO 01/17/25 22:00 01/19/25 21:25 40 MG Laboratory Results Laboratory Tests 01/18/25 05:46 Microbiology Microbiology Date/Time Source Procedure Growth Status 01/18/25 14:23 Blood Blood Culture - Preliminary NO GROWTH AFTER 24 HOURS OF INCUBATION. Resulted Labs and/or images reviewed: Labs reviewed by me, Image(s) reviewed by me Assessment/Plan Assessment/Plan Sepsis unknown etiology: Blood cultures negative urine cultures pending, continue Rocephin AFib not on Eliquis Hypertension: Metoprolol Dementia: Aricept Hypercholesterolemia : Lipitor Hypothyroidism: Synthroid Time spent 55 minutes Plan discussed with: Patient My Orders Orders - MANJU GOINS MD Procedure Category Date Status Time Pureed DIET 01/19/25 Transmitted Dinner Date of Service: January 20, 2025 Billing Provider: MANJU GOINS MD Common Visit Codes: [id number] INP/OBS CARE(HIGH) MANJU GOINS MD January 20, 2025 10:39
[2025-01-21 01:00] VITALS: BP 118/75; PULSE 69; RESP 16; TEMP 98.8; O2SAT 95
[2025-01-21 05:00] VITALS: BP 151/69; PULSE 93; RESP 17; TEMP 98.5; O2SAT 96
[2025-01-21 09:00] VITALS: BP 107/70; PULSE 69; RESP 16; TEMP 97.7; O2SAT 95
--- NOTE | 2025-01-21 10:13 | DVHPN2 ---
Reviewed: Care Plan, H&P, Labs, Medications, Previous Orders, Radiology Changes from previous H/P or p: No Changes Objective Vitals Vital Signs Date Time Temp Pulse Resp B/P (MAP) Pulse Ox O2 Delivery O2 Flow Rate FiO2 01/21/25 09:26 78 142/77 01/21/25 05:00 98.5 17 96 98.5 01/20/25 20:00 Room Air* 0 21 Intake/Output Intake and Output 01/21/25 07:00 Intake Total 550 ml Balance 550 ml Intake Oral 500 ml IV Total 50 ml # Voids 6 Medications Current Medications Medications Dose Ordered Sig/Padma Route Start Time Stop Time Status Last Admin Dose Admin Ceftriaxone Sodium 50 ml @ 100 mls/hr DAILY@09 IV 01/17/25 10:15 01/21/25 09:25 100 MLS/HR Ondansetron HCl 4 mg Q4HP PRN IV 01/17/25 10:15 Enoxaparin Sodium 40 mg DAILY SC 01/18/25 10:00 01/21/25 09:27 40 MG Acetaminophen 650 mg Q6HP PRN PO 01/17/25 10:15 Nitroglycerin 0.4 mg Q5MINP PRN SL 01/17/25 10:15 Aspirin 81 mg DAILY PO 01/18/25 10:00 01/21/25 09:26 81 MG Calcium/Vitamin D 1 tab BID PO 01/17/25 22:00 01/21/25 09:26 1 TAB Donepezil HCl 5 mg DAILY PO 01/18/25 10:00 01/21/25 09:26 5 MG Levothyroxine Sodium 25 mcg QAM PO 01/18/25 07:00 01/21/25 06:08 25 MCG Ferrous Sulfate 325 mg DAILY PO 01/18/25 10:00 01/21/25 09:26 325 MG Folic Acid 1 mg DAILY PO 01/18/25 10:00 01/21/25 09:27 1 MG Metoprolol Succinate 25 mg DAILY PO 01/18/25 10:00 01/21/25 09:26 25 MG Pantoprazole Sodium 40 mg DAILY IV 01/18/25 10:00 01/21/25 09:25 40 MG Atorvastatin Calcium 40 mg HS PO 01/17/25 22:00 01/20/25 22:04 40 MG Laboratory Results Laboratory Tests 01/18/25 05:46 Microbiology Microbiology Date/Time Source Procedure Growth Status 01/18/25 14:23 Blood Blood Culture - Preliminary NO GROWTH AFTER 48 HOURS OF INCUBATION. Resulted Labs and/or images reviewed: Labs reviewed by me, Image(s) reviewed by me Assessment/Plan Assessment/Plan Sepsis unknown etiology: Blood cultures negative urine cultures pending, continue Rocephin AFib not on Eliquis Hypertension: Metoprolol Dementia: Aricept Hypercholesterolemia : Lipitor Hypothyroidism: Synthroid Time spent 55 minutes Plan discussed with: Patient My Orders Orders - MANJU GOINS MD Procedure Category Date Status Time Communication Order ORDERS 01/20/25 Transmitted 10:37 Date of Service: January 21, 2025 Billing Provider: MANJU GOINS MD Common Visit Codes: [id number] INP/OBS CARE(HIGH) MANJU GOINS MD January 21, 2025 10:13
--- NOTE | 2025-01-21 10:16 | DVHPN2 ---
Reviewed: Care Plan, H&P, Labs, Medications, Previous Orders, Radiology Changes from previous H/P or p: No Changes Objective Vitals Vital Signs Date Time Temp Pulse Resp B/P (MAP) Pulse Ox O2 Delivery O2 Flow Rate FiO2 01/21/25 09:26 78 142/77 01/21/25 05:00 98.5 17 96 98.5 01/20/25 20:00 Room Air* 0 21 Intake/Output Intake and Output 01/21/25 07:00 Intake Total 550 ml Balance 550 ml Intake Oral 500 ml IV Total 50 ml # Voids 6 Medications Current Medications Medications Dose Ordered Sig/Padma Route Start Time Stop Time Status Last Admin Dose Admin Ceftriaxone Sodium 50 ml @ 100 mls/hr DAILY@09 IV 01/17/25 10:15 01/21/25 09:25 100 MLS/HR Ondansetron HCl 4 mg Q4HP PRN IV 01/17/25 10:15 Enoxaparin Sodium 40 mg DAILY SC 01/18/25 10:00 01/21/25 09:27 40 MG Acetaminophen 650 mg Q6HP PRN PO 01/17/25 10:15 Nitroglycerin 0.4 mg Q5MINP PRN SL 01/17/25 10:15 Aspirin 81 mg DAILY PO 01/18/25 10:00 01/21/25 09:26 81 MG Calcium/Vitamin D 1 tab BID PO 01/17/25 22:00 01/21/25 09:26 1 TAB Donepezil HCl 5 mg DAILY PO 01/18/25 10:00 01/21/25 09:26 5 MG Levothyroxine Sodium 25 mcg QAM PO 01/18/25 07:00 01/21/25 06:08 25 MCG Ferrous Sulfate 325 mg DAILY PO 01/18/25 10:00 01/21/25 09:26 325 MG Folic Acid 1 mg DAILY PO 01/18/25 10:00 01/21/25 09:27 1 MG Metoprolol Succinate 25 mg DAILY PO 01/18/25 10:00 01/21/25 09:26 25 MG Pantoprazole Sodium 40 mg DAILY IV 01/18/25 10:00 01/21/25 09:25 40 MG Atorvastatin Calcium 40 mg HS PO 01/17/25 22:00 01/20/25 22:04 40 MG Laboratory Results Laboratory Tests 01/18/25 05:46 Microbiology Microbiology Date/Time Source Procedure Growth Status 01/18/25 14:23 Blood Blood Culture - Preliminary NO GROWTH AFTER 48 HOURS OF INCUBATION. Resulted Labs and/or images reviewed: Labs reviewed by me, Image(s) reviewed by me Assessment/Plan Assessment/Plan Sepsis unknown etiology: Blood cultures negative urine cultures pending, continue Rocephin AFib not on Eliquis Hypertension: Metoprolol Dementia: Aricept Hypercholesterolemia : Lipitor Hypothyroidism: Synthroid Sepsis unknown etiology: Blood cultures negative urine cultures pending, continue Rocephin AFib not on Eliquis Hypertension: Metoprolol Dementia: Aricept Hypercholesterolemia : Lipitor Hypothyroidism: Synthroid Time spent 55 minutes Plan discussed with: Patient My Orders Orders - MANJU GOINS MD Procedure Category Date Status Time Communication Order ORDERS 01/20/25 Transmitted 10:37 Urinalysis LAB 01/21/25 Logged 10:07 Urine Bacterial CRYSTAL 01/21/25 Logged Culture 10:07 Communication Order ORDERS 01/21/25 Transmitted 10:07 Date of Service: January 21, 2025 Billing Provider: MANJU GOINS MD Common Visit Codes: [id number] INP/OBS CARE(HIGH) MANJU GOINS MD January 21, 2025 10:16
[2025-01-21 11:15] LABS: Urine Bacteria None Seen /hpf (None Seen)
[2025-01-21 11:26] LABS: Urine Blood Negative /uL (Negative); Urine Clarity Clear (Clear); Urine Color Yellow (Yellow); Urine Mucus FEW (None Seen); Urine Protein, UAD Negative (Negative); Urine Specific Gravity 1.023 (1.001-1.035); Urine Squamous Epithelial Cell FEW /hpf (<5); Urine Urobilinogen Normal (Negative); Urine WBC 9 /HPF (0-5)
[2025-01-21 13:00] VITALS: BP 99/53; PULSE 67; RESP 15; TEMP 97.1; O2SAT 95
[2025-01-21 17:00] VITALS: BP 114/66; PULSE 64; RESP 19; TEMP 97.6; O2SAT 97
[2025-01-21 21:00] VITALS: BP 107/57; PULSE 66; RESP 16; TEMP 97.5; O2SAT 95
[2025-01-22] VITALS (7 sets, daily range): BP systolic 91–116; BP diastolic 51–76; PULSE 60–72; RESP 16–18; TEMP 36.4; O2SAT 93–98
[2025-01-22] MEDS ORDERED: CIPR-173 PO (08:39)
--- NOTE | 2025-01-22 08:44 | DVHDS2 ---
Discharge Summary Date of Admission January 17, 2025 at 10:12 Date of Discharge: January 22, 2025 Admitting Diagnosis Altered mental status and confusion Wounds: None Labs/Diagnostic Data: Laboratory Results Test 01/21/25 11:00 01/18/25 05:46 01/17/25 10:15 01/17/25 07:05 Urine Color Yellow (Yellow) Urine Clarity Clear (Clear) Urine pH 6.0 (5.0-9.0) Urine Specific Hubbell 1.023 (1.001-1.035) Urine Protein Negative (Negative) Urine Ketones Negative (Negative) Urine Blood Negative /uL (Negative) Urine Nitrite Negative (Negative) Urine Bilirubin Negative (Negative) Urine Urobilinogen Normal mg/dL (Negative) Urine Leukocyte Esterase 2+ /uL (Negative) Urine RBC 1 /hpf (0 - 4) Urine Microscopic WBC 9 /HPF (0-5) Urine Squamous Epithelial Cells Few /hpf (<5) Urine Bacteria None seen /hpf (None Seen) Urine Mucus Few (None Seen) Urine Glucose Normal mg/dL (Normal) White Blood Count 8.8 10^3/uL (4.4-10.8) Red Blood Count 4.46 10^6/uL (4.0-5.20) Hemoglobin 11.7 g/dL (12.2-16.2) Hematocrit 36.3 % (36.0-46.0) Mean Corpuscular Volume 81.2 fL (80.0-100.0) Mean Corpuscular Hemoglobin 26.3 pg (28.0-32.0) Mean Corpuscular Hemoglobin Concent 32.4 g/dL (32.0-36.0) Red Cell Distribution Width 20.3 % (11.8-14.3) Platelet Count 298 10^3/uL (140-450) Mean Platelet Volume 8.0 fL (6.9-10.8) Neutrophils (%) (Auto) 60.1 % (37.0-80.0) Lymphocytes (%) (Auto) 31.6 % (10.0-50.0) Monocytes (%) (Auto) 5.9 % (0.0-12.0) Eosinophils (%) (Auto) 1.4 % (0.0-7.0) Basophils (%) (Auto) 1.0 % (0.0-2.0) Neutrophils # (Auto) 5.3 10 ^3/uL (1.6-8.6) Lymphocytes # (Auto) 2.8 10 ^3/uL (0.4-5.4) Monocytes # (Auto) 0.5 10 ^3/uL (0-1.3) Eosinophils # (Auto) 0.1 10 ^3/uL (0-0.8) Basophils # (Auto) 0.1 10 ^3/uL (0-0.2) Nucleated Red Blood Cells 0.2 % Sodium Level 140 mmol/L (136-145) Potassium Level 4.1 mmol/L (3.5-5.1) Chloride Level 105 mmol/L (98-107) Carbon Dioxide Level 26 mmol/L (20-31) Anion Gap 9 (5-15) Blood Urea Nitrogen 6 mg/dL (9-23) Creatinine 0.57 mg/dL (0.550-1.02) Glomerular Filtration Rate Calc 91 mL/min (>90) BUN/Creatinine Ratio 10.5 (10.0-20.0) Serum Glucose 103 mg/dL (74-106) Calcium Level 9.9 mg/dL (8.7-10.4) Total Bilirubin 1.0 mg/dL (0.2-1.0) Aspartate Amino Transferase (AST) 12 U/L (13-40) Alanine Aminotransferase (ALT) < 9 U/L (7-40) Alkaline Phosphatase 90 U/L (46-116) Total Protein 6.9 g/dL (5.7-8.2) Albumin 3.9 g/dL (3.2-4.8) Troponin I High Sensitivity 3 ng/L (</=34) Hemoglobin A1c 5.6 % A1C (<5.7) Creatine Kinase 30 U/L (34-145) Other Laboratory Tests 01/18/25 05:46 Brief Hx & Hospital Course: 79-year-old female with a history of hypertension AFib not on Eliquis dementia hypercholesterolemia hypothyroidism on hospice burden by family for altered mental status and confusion found to be in sepsis started on Rocephin blood cultures negative urine cultures pending. Mild UTI treated with Rocephin. Patient feels better alert and awake discharged back home on hospice on Cipro for UTI. General condition poor but stable at the time of discharge. Consults/Reason for consult None Operations or Procedures None Condition at Discharge: Fair Final Diagnosis/Problems List Sepsis unknown etiology: Blood cultures negative urine cultures pending, continue Rocephin AFib not on Eliquis Hypertension: Metoprolol Dementia: Aricept Hypercholesterolemia : Lipitor Hypothyroidism: Synthroid Discharge Disposition: Hospice - Home Discharge Instruct/Medications Diet: Cardiac 2g Na,low cholest Activity: Light activity Follow Up/Referral: Follow up with your primary Dr and hospice dr Medications: Cipro Transmitted to pharmacy 39 (Time taken for discharge summary 39 minutes) Discharge Statement: "Patient was advised to return to the ER or call 911 if any headaches, dizziness, shortness of breath, chest pain, abdominal pain, bleeding, fevers, or worsening of medical condition. Patient was counseled about treatment plan, medications, possible side effects, patientverbalized understanding. All questions were answered to the best of my ability. This discharge took greater then 30 minutes in planning, reviewing documentation, counseling the patient, and discussing with other team members." ASSESSMENT ASSESSMENT Hospital Course Improved Assessment Sepsis unknown etiology: Blood cultures negative urine cultures pending, continue Rocephin AFib not on Eliquis Hypertension: Metoprolol Dementia: Aricept Hypercholesterolemia : Lipitor Hypothyroidism: Synthroid Date of Service: January 22, 2025 Billing Provider: MANJU GOINS MD Common Visit Codes: [id number] DISCH DAY >30min MANJU GOINS MD January 22, 2025 08:44
--- NOTE | 2025-01-23 14:41 | ECG ---
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
== END 2025-01-22 18:30 | disposition hospice, home (50) | DRG 871 ==
LOC: ER 06:21 → EDBD 06:21 → OVERFLOW 10:12 → CENTRAL 17:16
PROVIDERS: ADMIT Family Medicine; ATTEND Family Medicine
DX: A41.9 Sepsis, unspecified organism (principal); R53.2 Functional quadriplegia; N39.0 Urinary tract infection, site not specified; E03.9 Hypothyroidism, unspecified; E78.00 Pure hypercholesterolemia, unspecified; I10 Essential (primary) hypertension; I48.91 Unspecified atrial fibrillation; F03.90 Unspecified dementia, unspecified severity, without behavioral disturbance, psychotic disturbance, mood disturbance, and anxiety; R73.9 Hyperglycemia, unspecified; Z88.5 Allergy status to narcotic agent; Z88.8 Allergy status to other drugs, medicaments and biological substances; Z79.899 Other long term (current) drug therapy; Z79.82 Long term (current) use of aspirin; Z74.01 Bed confinement status
CPT/HCPCS: 36415; 71045; 80048; 80053; 81001; 82550; 83036; 84484; 85025; 87040; 87086; 93005; 99291; G0378; J2470